=== PATIENT | male | born 1975 | race Caucasian/White ===

== ENCOUNTER 2021-10-13 19:43 | Emergency (ER) | payer OTHER ==
[2021-10-13] MEDS ORDERED: BACTRIM DS TAB1 EACH PO (20:04)
== END 2021-10-13 20:25 | disposition home or self-care (01) ==
LOC: ER1 19:43
DX: H66.41 Suppurative otitis media, unspecified, right ear (principal); F17.210 Nicotine dependence, cigarettes, uncomplicated
CPT/HCPCS: 10060; 87070; 87205; 99283